=== PATIENT | female | born 1995 | race Caucasian/White ===

== ENCOUNTER 2021-06-26 16:35 | Emergency (ER) | payer OTHER ==
[~2021-06-26] VITALS: Ht 165.1 cm; Wt 61.4 kg
[2021-06-26] MEDS ORDERED: BACITRACIN OINTMENT 30GM TUBE TOP STA (19:28)
--- OUTSIDE RECORDS SUMMARY | 2021-06-26 19:51 | CCD ---
Author Author [facility] Address Unknown Phone Unavailable Support Name Relationship Address Phone UE Next Of Kin Unknown Unavailable Re-disclosure Warning The records that you are about to access may contain information from federally-assisted alcohol or drug abuse programs. If such information is present, then the following federally mandated warning applies: This information has been disclosed to you from records protected by federal confidentiality rules (42 CFR part 2). The federal rules prohibit you from making any further disclosure of this information unless further disclosure is expressly permitted by the written consent of the person to whom it pertains or as otherwise permitted by 42 CFR part 2. A general authorization for the release of medical or other information is NOT sufficient for this purpose. The Federal rules restrict any use of the information to criminally investigate or prosecute any alcohol or drug abuse patient.The records that you are about to access may contain highly sensitive health information, the redisclosure of which is protected by Article 27-F of the [facility] Public Health law. If you continue you may have access to information: Regarding HIV / AIDS; Provided by facilities licensed or operated by the [facility] Office of Mental Health; or Provided by the [facility] Office for People With Developmental Disabilities. If such information is present, then the following [facility] mandated warning applies: This information has been disclosed to you from confidential records which are protected by state law. State law prohibits you from making any further disclosure of this information without the specific written consent of the person to whom it pertains, or as otherwise permitted by law. Any unauthorized further disclosure in violation of state law may result in a fine or mcc sentence or both. A general authorization for the release of medical or other information is NOT sufficient authorization for further disc losure. Medications No Information Insurance Providers Payer name Policy type / Coverage type Policy ID Covered constitution party ID Covered constitution party's relationship to penaloza Policy Penaloza Plan Information [facility] [id number] [facility] [id number] Problems, Conditions, and Diagnoses No Information Surgeries/Procedures No Information Results No Information Social History No Information
[2021-06-26 20:18] VITALS: BP 121/67
== END 2021-06-26 20:23 | disposition home or self-care (01) ==
LOC: M ED 16:35
DX: T23.132A Burn of first degree of multiple left fingers (nail), not including thumb, initial encounter (principal); X10.2XXA Contact with fats and cooking oils, initial encounter; Y92.009 Unspecified place in unspecified non-institutional (private) residence as the place of occurrence of the external cause; Y93.G3 Activity, cooking and baking; Y99.9 Unspecified external cause status; Z88.2 Allergy status to sulfonamides

== ENCOUNTER → 2024-02-23 | Outpatient (REF) | payer OTHER ==
[~2024-02-23] MED LIST: ACET500P3 PO; COQ150CH PO; D-101000 PO; ESSETAB4 PO; IRON27TA2 PO; MAGN100C3 PO; ONDA-282 PO; OSEL75CA PO; POTA-151 PO; PREN1CAP4 PO; VITA100T39 PO; VITA100T59 PO
== END ==
LOC: M LAB REF 15:21
PROVIDERS: ATTEND Nurse Practitioner Family
DX: Z53.20 Procedure and treatment not carried out because of patient's decision for unspecified reasons (principal)